=== PATIENT | female | born 1975 | race Caucasian/White ===

== ENCOUNTER 2022-08-10 06:24 | Day surgery (SDC) | payer OTHER ==
[2022-08-09 14:03] LABS: Absolute Lymphocytes (CBC) 1.5 K/uL (0.7-4.9); Hematocrit 41.4 % (36.0-45.0); Lymphocytes % 16.7 % (15.3-44.8); MCV 89.5 fL (80-100); RBC Red Blood Cell Count 4.63 M/uL (3.86-4.86)
--- NOTE | 2022-08-09 14:18 | RAD REPORT ---
EXAM DESCRIPTION: RAD - Chest Pa And Lat (2 Views) - 08/09/2022 1:52 pm CLINICAL HISTORY: PRE-OP, hypertension, breast implants COMPARISON: No comparisons FINDINGS: Lines: None. Lungs: No evidence of edema or pneumonia. Pleural: No significant pleural effusions or pneumothorax. Cardiac: The heart size is within normal limits. Mediastinum: Within normal limits. Bones: No acute fractures. Other: None IMPRESSION: No acute cardiopulmonary disease.
--- NOTE | 2022-08-09 16:04 | EKG ---
Test Date: 2022-08-09 Test Time: 13:26:34 Bond Writer: COLE MEASUREMENT RESULTS: Intervals: Rate: 92 SC: 134 QRSD: 84 QT: 374 QTc: 462 [place]: P: 53 SC: 134 QRS: 55 T: 23 INTERPRETIVE STATEMENTS: Normal sinus rhythm Normal ECG No previous ECG available for comparison Electronically Signed On 08-09-22 16:03:53 CDT by Rigo Balderrama
[2022-08-10] MEDS ORDERED: Ringers Lactate 1,000 ML IV ONE (06:49)
[2022-08-10] MEDS ORDERED: propofoL 200 MG/20 ML VIAL IV ONE (07:03)
[2022-08-10] MEDS: CEFAZOLIN SODIUM 1 GM/VIAL ONE ×3 (07:04→08:05)
[2022-08-10] MEDS ORDERED: MIDAZOLAM HCL 2 MG/2 ML INJ ONE (07:04)
[2022-08-10] MEDS ORDERED: FENTANYL CITR 100 MCG/2 ML ONE ×2 (07:05→08:40)
[2022-08-10] MEDS ORDERED: LIDOCAINE 2% MPF 5 ML VIAL ONE (07:06)
[2022-08-10] MEDS ORDERED: ONDANSETRON 4 MG/2 ML VIAL ONE (07:08)
[2022-08-10] MEDS ORDERED: dexAMETHasone 4 MG/ML VIAL ONE (08:34)
[2022-08-10] MEDS ORDERED: GLYCOPYRROLATE 0.2 MG/ML SYR ONE (08:45)
[2022-08-10] MEDS ORDERED: EPHEDRINE SULF 50 MG/ML VIAL ONE (08:45)
[2022-08-10] MEDS ORDERED: ATROPINE SULF 1 MG/10 ML SYR IV ONE (08:46)
[2022-08-10] MEDS ORDERED: Phenylephrine HCl 10 MG/ML 1 ML VIAL ONE (08:50)
--- NOTE | 2022-08-10 09:15 | P.BOP ---
Preoperative diagnosis: upper abdominal wall intramuscular mass Postoperative diagnosis: same Primary procedure: Excisional biopsy of large tender upper abdominal wall intramuscular mass Secondary procedure: [id number] Estimated blood loss: <10cc Specimen: rectus abdominis intramuscular mass Anesthesia: General Complications: None Transferred to: Recovery Room Condition: Good
[2022-08-10] MEDS: HYDROMORPHONE HCL 1 MG/ML INJ ONE ×2 (09:26→09:38)
[2022-08-10 10:13] VITALS: BP 124/76; TEMP 97.6; O2SAT 100
[2022-08-10] MEDS ORDERED: CODEINE 30MG/APAP 300MG TAB ONE (10:13)
--- NOTE | 2022-08-10 16:03 | DS ---
Date of Discharge: 08/10/2022 Diagnosis: Upper abdominal wall intramuscular mass. Procedure: Excisional biopsy of large tender upper abdominal wall intramuscular mass. Disposition: Home. Plan: Keep area and dressings intact until Monday visit. Medications were recalled from the office and follow up in my office this Monday and use abdominal binder. YAMILEX/MAYRA Voice ID: [id number] Report ID: [id number]
--- NOTE | 2022-08-10 16:12 | OP ---
Date of Procedure: 08/10/2022 Surgeon: Pietro Lorenzana MD Preoperative Diagnosis: Tender upper abdominal wall, rectus abdominis intramuscular and soft muscula r mass. Postoperative Diagnosis: Tender upper abdominal wall, rectus abdominis intramuscular and soft muscul ar mass. Procedure: Excisional biopsy of large tender upper abdominal wall intramuscular mass at about 12 x 7 x 2 cm. Estimated Blood Loss: Less than 10 mL. Specimen: Abdominal intramuscular mass not only goes into the rectus abdominis split right through i t and goes also underneath that rectus too. Does not go inside the peritoneum. Anesthesia: General plus local. Complications: None. Indication: This is the case of a 47-year-old patient, who comes to us with enlarging mass in the up per abdomen. Etiology of that is unknown. Imaging was done and showing the mass that not only goes through the muscle, but also underneath the muscle. It is giving her pain and discomfort, she wants that excised. The benefits, alternatives, and risks of excision fully explained, which include, but not limited to infection, bleeding, damage to adjacent structures, anesthesia complication, recurrenc e, GA, and even . She also understands this may not relieve any symptoms. She might need more than one surgical intervention. She understands also she may develop seroma in that region since the re is a large area present or even hematoma. She understands also be careful with heavy lifting in t he next few days since this muscle may get inflamed and bleed. She understood, signed the consent. The area of concern was marked by me and the patient in the holding room. Procedure In Detail: The patient was brought to the operating room, placed in supine position. Anes thesia was done without complication. Abdominal area was prepped and draped in the usual sterile fas hion. Local anesthesia was applied followed by sharp incision of the skin. We are going to subcutan eous tissue and then after that, we found the mass was partially protruding through the muscle and th en going inside the muscle. We identified the rectus abdominis , opened the fascia in that region, carefully dissected with blunt dissection. dissected around the muscle itself, i ntramuscular, some of that mass goes underneath the muscle itself. With the help of blunt dissection , we were able to dissect the area nicely to remove this in 1 unit. This is a large area, but when w e removed that, the muscle came back together. Hemostasis was obtained and irrigation before closure and local anesthetic. We approximated the muscle with the help of chromic. We approximated the fas jacob with #1 Vicryl multiple times and this was closed in layers once again from the inner layers to t he outer layers with a combination of Vicryl 0 chromic, then subcutaneous 3-0 chromic, and then skin with 4-0 PDS. The patient tolerated the procedure well. The patient was sent to recovery in stable condition. Hemostasis was obtained before closure. YAMILEX/MAYRA Voice ID: [id number] Report ID: [id number]
== END 2022-08-10 10:38 | disposition home or self-care (01) ==
LOC: OR 06:24
PROVIDERS: ATTEND Surgery
PROC: 0WBF0ZZ Excision of Abdominal Wall, Open Approach (ICD-10-PCS; principal; 2022-08-10 07:30)
DX: R19.00 Intra-abdominal and pelvic swelling, mass and lump, unspecified site (principal); R19.11 Absent bowel sounds; I10 Essential (primary) hypertension; E03.9 Hypothyroidism, unspecified; K21.9 Gastro-esophageal reflux disease without esophagitis; Z87.891 Personal history of nicotine dependence
CPT/HCPCS: 93005; 85025; 80048; 36415; 84703; 88304; 71046; 22901; J2704; J1100; J2370; J2001; J2250; J3010 ×2; J1170; J2405; J7120; J0690; J0461

== ENCOUNTER → 2023-04-28 | Emergency (ER) | payer OTHER ==
[~2023-04-28] MED LIST: NA CHLORIDE 0.9% 500 ML ONE; POTASSIUM CL SA 10 MEQ TAB PO ONE
[2023-04-28 02:24] LABS: Absolute Lymphocytes (CBC) 2.5 K/uL (0.7-4.9); Hematocrit 45.8 % (36.0-45.0); Lymphocytes % 48.5 % (15.3-44.8); MCV 88.4 fL (80-100); MPV 9.1 fL (7.6-11.3); Platelets 224 thou/uL (152-406); RBC Red Blood Cell Count 5.18 M/uL (3.86-4.86)
[2023-04-28 02:35] LABS: Albumin 3.9 g/dL (3.4-5.0); Bilirubin Direct 0.1 mg/dL (0-0.2); Bilirubin Indirect, Calculated 0.3 mg/dL (0.2-0.8); Bilirubin Total 0.4 mg/dL (0.2-1.0); Magnesium 2.3 mg/dL (1.6-2.4); Protein, Total 7.5 g/dL (6.4-8.2); Troponin High Sensitivity 3.3 pg/mL (<58.9)
[2023-04-28 02:43] LABS: Blood Morphology Comment NOT SEEN (NOT SEEN); Platelet Estimate ADEQ
--- NOTE | 2023-04-28 02:54 | ER ---
Nurse's Notes [facility] Name: Dasha Horvath Age: 48 yrs Sex: Female : 1975 Arrival Date: 04/28/2023 Time: 01:45 Bed 4 Private MD: Diagnosis: Cervical radiculopathy, dehydration, hypokalemia Presentation: 04/28 01:46 Chief complaint: Patient states: I have neck pain that radiates to the left arm. my ha1 left arm feels numb. 01:46 Coronavirus screen: Vaccine status: Patient reports receiving the 2nd dose of the covid ha1 vaccine. Pfiser. Ebola Screen: No symptoms or risks identified at this time. Initial Sepsis Screen: Does the patient meet any 2 criteria? No. Patient's initial sepsis screen is negative. Does the patient have a suspected source of infection? No. Patient's initial sepsis screen is negative. Risk Assessment: Do you want to hurt yourself or someone else? Patient reports no desire to harm self or others. Onset of symptoms was April 28, 2023. 01:46 Method Of Arrival: Ambulatory ha1 01:46 Acuity: BOLIVAR 3 ha1 Triage Assessment: 01:46 General: Appears uncomfortable, Behavior is cooperative, anxious. Pain: Complains of ha1 pain in neck Pain radiates to left arm Pain currently is 7 out of 10 on a pain scale. Quality of pain is described as throbbing. Neuro: Level of Consciousness is awake, alert, obeys commands, Oriented to person, place, time, situation. Cardiovascular: Capillary refill < 3 seconds Patient's skin is warm and dry. Cardiovascular: Heart tones S1 S2 present. Respiratory: Airway is patent Respiratory effort is even, unlabored, Respiratory pattern is regular, symmetrical. GI: GI: No signs and/or symptoms were reported involving the gastrointestinal system. Abdomen is round non-distended. : No signs and/or symptoms were reported regarding the genitourinary system. Derm: Skin is pink, warm \T\ dry. Musculoskeletal: Circulation, motion, and sensation intact. Range of motion: intact in all extremities. Historical: - Allergies: 01:56 Sulfa (Sulfonamide Antibiotics); ha1 - PMHx: :56 Hypertensive disorder; ha1 - Immunization history:: Adult Immunizations up to date. - Social history:: Smoking status: Patient/guardian denies using tobacco, but has a distant history of tobacco abuse. Screenin:00 [facility] ED Fall Risk Assessment (Adult) History of falling in the last 3 months, ha1 including since admission No falls in past 3 months (0 pts) Confusion or Disorientation No (0 pts) Intoxicated or Sedated No (0 pts) Impaired Gait No (0 pts) Mobility Assist Device Used No (0 pt) Altered Elimination No (0 pt) Score/Fall Risk Level 0 - 2 = Low Risk Oriented to surroundings, Maintained a safe environment, Hourly rounding (assess needs \T\ fall precautionary measures) done. Abuse screen: Denies threats or abuse. Denies injuries from another. Nutritional screening: No deficits noted. Tuberculosis screening: No symptoms or risk factors identified. Assessment: 01:46 Reassessment: see triage assessment. ha1 02:50 Reassessment: Patient and/or family updated on plan of care and expected duration. Pain ha1 level reassessed. Patient is alert, oriented x 3, equal unlabored respirations, skin warm/dry/pink. pain 2/10 Patient states feeling better. Patient states symptoms have improved. Vital Signs: 01:46 BP 165 / 91; Pulse 75; Resp 18 S; Temp 98.1; Pulse Ox 99% on R/A; Weight 91.17 kg; ha1 Height 5 ft. 4 in. ; 02:30 BP 147 / 86; Pulse 75; Resp 17 S; Pulse Ox 98% on R/A; ha1 03:39 BP 140 / 80; Pulse 72; Resp 17 S; Pulse Ox 98% on R/A; ha1 01:46 Body Mass Index 34.50 (91.17 kg, 162.56 cm) 1 ED Course: 01:46 Patient arrived in ED. [email or web address] 01:46 Martir Crawford MD is Attending Physician. sp3 01:46 Patient has correct armband on for positive identification. Placed in gown. Bed in low ha1 position. Call light in reach. Side rails up X 1. Adult w/ patient. 01:46 Arm band placed on right wrist. ha1 01:48 Inserted saline lock: 20 gauge in right antecubital area, using aseptic technique. ha1 Blood collected. 01:53 Basic Metabolic Panel Sent. ha1 01:53 CBC with Diff Sent. ha1 01:53 LFT's Sent. ha1 01:53 Magnesium Sent. ha1 01:53 NT PRO-BNP Sent. ha1 01:53 Troponin HS Sent. ha1 01:56 Triage completed. ha1 02:23 XRAY Chest (1 view) In Process Unspecified. EDMS 02:40 C Spine Ap/Lat XRAY In Process Unspecified. EDMS 03:36 Audra Saravia, RN is Primary Nurse. ha1 03:37 No provider procedures requiring assistance completed. IV discontinued, intact, ha1 bleeding controlled, No redness/swelling at site. Pressure dressing applied. 03:38 Provided Education on: following up with PCP. ha1 Administered Medications: 02:55 Drug: Potassium Chloride PO 20 mEq PO once Route: PO; ha1 03:37 Follow up: Response: No adverse reaction ha1 02:55 Drug: NS 0.9% IV 500 ml IV at bolus once Route: IV; Rate: bolus; Site: right ha1 antecubital; 03:36 Follow up: Response: No adverse reaction; IV Status: Completed infusion; IV Intake: ha1 500ml Medication: 03:38 VIS not applicable for this client. ha1 Intake: 03:36 IV: 500ml; Total: 500ml. ha1 Outcome: 02:54 Discharge ordered by . sp3 03:37 Discharged to home ambulatory, ha1 03:37 Condition: stable 03:37 Discharge instructions given to patient, family, Instructed on discharge instructions, follow up and referral plans. Demonstrated understanding of instructions, follow-up care, 03:40 Patient left the ED. ha1 Signatures: Dispatcher [employer] Martir Thompson MD MD sp3 Audra Forman jj6 Audra Saravia, RN RN ha1
--- NOTE | 2023-04-28 02:54 | EDPHYS ---
Physician Documentation [facility] Name: Dasha Horvath Age: 48 yrs Sex: Female : 1975 Arrival Date: 04/28/2023 Time: 01:45 Bed 4 Private MD: ED Physician Martir Crawford HPI: 04/28 01:53 This 48 yrs old Female presents to ER via Unassigned with complaints of Numbness Of sp3 Arm, Arm Pain. 01:53 48-year-old female with a history of hypertension now presents to the ED with chief sp3 complaint left-sided neck pain with numbness and pain extending into her left upper extremity that is worse when she moves it. She denies any chest pain per se, shortness of breath, back pain, abdominal pain, epigastric pain, syncope, near syncope, or any other anginal equivalents. Review of systems otherwise negative for URI symptoms, fever, known sick contacts, travel history, abdominal pain, nausea, vomiting, diarrhea, other focal neurological deficit, symptoms, NURSING HOME ADMISSIONS DIRECTOR symptoms, or any other signs or symptoms on ROS at this time.. Historical: - Allergies: 01:56 Sulfa (Sulfonamide Antibiotics); ha1 - PMHx: 01:56 Hypertensive disorder; ha1 - Immunization history:: Adult Immunizations up to date. - Social history:: Smoking status: Patient/guardian denies using tobacco, but has a distant history of tobacco abuse. ROS: 01:56 Constitutional: Negative for fever, chills, and weight loss, Eyes: Negative for injury, sp3 pain, redness, and discharge, ENT: Negative for injury, pain, and discharge, Neck: Negative for injury, pain, and swelling, Cardiovascular: Negative for chest pain, palpitations, and edema, Respiratory: Negative for shortness of breath, cough, wheezing, and pleuritic chest pain, Abdomen/GI: Negative for abdominal pain, nausea, vomiting, diarrhea, and constipation, Back: Negative for injury and pain, Skin: Negative for injury, rash, and discoloration, Neuro: Negative for headache, weakness, numbness, tingling, and seizure, Psych: Negative for depression, anxiety, suicide ideation, homicidal ideation, and hallucinations, Allergy/Immunology: Negative for hives, rash, and allergies, Endocrine: Negative for neck swelling, polydipsia, polyuria, polyphagia, and marked weight changes, Hematologic/Lymphatic: Negative for swollen nodes, abnormal bleeding, and unusual bruising, 01:56 All other systems are negative, Exam: 01:57 Constitutional: This is a well developed, well nourished patient who is awake, alert, sp3 and in no acute distress. Head/Face: Normocephalic, atraumatic. Eyes: Pupils equal round and reactive to light, extra-ocular motions intact. Lids and lashes normal. Conjunctiva and sclera are non-icteric and not injected. Cornea within normal limits. Periorbital areas with no swelling, redness, or edema. ENT: Nares patent. No nasal discharge, no septal abnormalities noted. External auditory canals are clear. Oropharynx with no redness, swelling, or masses, exudates, or evidence of obstruction, uvula midline. Mucous membranes moist. Neck: Trachea midline, no thyromegaly or masses palpated, and no cervical lymphadenopathy. Supple, full range of motion without nuchal rigidity, or vertebral point tenderness. No Meningismus. Chest/axilla: Normal chest wall appearance and motion. Nontender with no deformity. No lesions are appreciated. Cardiovascular: Regular rate and rhythm with a normal S1 and S2. No gallops, murmurs, or rubs. Normal PMI, no JVD. No pulse deficits. Respiratory: Lungs have equal breath sounds bilaterally, clear to auscultation and percussion. No rales, rhonchi or wheezes noted. No increased work of breathing, no retractions or nasal flaring. Abdomen/GI: Soft, non-tender, with normal bowel sounds. No distension or tympany. No guarding or rebound. No evidence of tenderness throughout. Back: No spinal tenderness. No costovertebral tenderness. Full range of motion. Skin: Warm, dry with normal turgor. Normal color with no rashes, no lesions, and no evidence of cellulitis. Neuro: Awake and alert, GCS 15, oriented to person, place, time, and situation. Cranial nerves II-XII grossly intact. Motor strength 5/5 in all extremities. Sensory grossly intact. Cerebellar exam normal. Normal gait. Psych: Awake, alert, with orientation to person, place and time. Behavior, mood, and affect are within normal limits. 01:57 Musculoskeletal/extremity: Inducible pain on left upper extremity with movement. Distal neurovascular exam is normal. Cardiac exam is normal.. 02:12 ECG was reviewed by the Attending Physician. EKG demonstrates normal sinus rhythm at 80 sp3 bpm with normal intervals, normal QRS, normal ST/T-segment's without evidence of acute ischemia. Vital Signs: 01:46 BP 165 / 91; Pulse 75; Resp 18 S; Temp 98.1; Pulse Ox 99% on R/A; Weight 91.17 kg; ha1 Height 5 ft. 4 in. ; 02:30 BP 147 / 86; Pulse 75; Resp 17 S; Pulse Ox 98% on R/A; ha1 03:39 BP 140 / 80; Pulse 72; Resp 17 S; Pulse Ox 98% on R/A; ha1 01:46 Body Mass Index 34.50 (91.17 kg, 162.56 cm) ha1 MDM: 01:47 Patient medically screened. sp3 01:58 Data reviewed: vital signs, nurses notes, lab test result(s), EKG, radiologic studies. sp3 ED course: 48-year-old female with hypertension and probable left upper extremity radiculopathy. I am not highly suspicious for acute coronary syndrome, PE, TAD or other aortic pathology, GI pathology, mediastinitis, sepsis, shock, pneumonia, pneumothorax, or any other critical process at this time. Will obtain EKG, chest x-ray, laboratory values as well as C-spine x-ray looking at joint space. If workup is negative, will recommend outpatient MRI and follow-up with PCP. . 02:52 ED course: Patient's laboratory values are within normal limits except for potassium. sp3 CBC and BUN and creatinine also demonstrate hemoconcentration. We will administer normal saline and also p.o. potassium. I do not believe this is cardiac in nature. Will recommend outpatient MRI given C5-C6 degenerative changes noted. Patient continues to have no chest pain, shortness of breath, jaw pain or other anginal equivalents. Patient is stable with normal vital signs and we will safely discharged home at this time after above interventions.. 04/28 01:47 Order name: Basic Metabolic Panel; Complete Time: 02:46 sp3 04/28 01:47 Order name: CBC with Diff; Complete Time: 02:46 sp3 04/28 01:47 Order name: LFT's; Complete Time: 02:46 sp3 04/28 01:47 Order name: Magnesium; Complete Time: 02:46 sp3 04/28 01:47 Order name: NT PRO-BNP; Complete Time: 02:46 sp3 04/28 01:47 Order name: Troponin HS; Complete Time: 02:46 sp3 04/28 02:27 Order name: Manual Differential; Complete Time: 02:46 EDMS 04/28 01:47 Order name: XRAY Chest (1 view) sp3 04/28 01:47 Order name: C Spine Ap/Lat XRAY sp3 04/28 01:47 Order name: EKG; Complete Time: 01:47 sp3 04/28 01:47 Order name: Cardiac monitoring; Complete Time: 01:52 sp3 04/28 01:47 Order name: EKG - Nurse/Tech; Complete Time: 01:52 sp3 04/28 01:47 Order name: IV Saline Lock; Complete Time: 01:52 sp3 04/28 01:47 Order name: Labs collected and sent; Complete Time: :52 sp3 04/28 01:47 Order name: O2 Per Protocol; Complete Time: :52 sp3 04/28 01:47 Order name: O2 Sat Monitoring; Complete Time: 01:52 sp3 Administered Medications: 02:55 Drug: Potassium Chloride PO 20 mEq PO once Route: PO; ha1 03:37 Follow up: Response: No adverse reaction ha1 02:55 Drug: NS 0.9% IV 500 ml IV at bolus once Route: IV; Rate: bolus; Site: right ha1 antecubital; 03:36 Follow up: Response: No adverse reaction; IV Status: Completed infusion; IV Intake: ha1 500ml Disposition Summary: 04/28/23 02:54 Discharge Ordered Notes: Location: Home sp3 Condition: Stable sp3 Diagnosis - Cervical radiculopathy, dehydration, hypokalemia sp3 Followup: sp3 - With: Private Physician - When: Upon discharge from the Emergency Department - Reason: Recheck today's complaints, Continuance of care Discharge Instructions: - Discharge Summary Sheet sp3 - Cervical Radiculopathy sp3 - Hypokalemia sp3 Forms: - Medication Reconciliation Form sp3 - Thank You Letter sp3 - Antibiotic Education sp3 - Prescription Opioid Use sp3 - Patient Portal Instructions sp3 - Leadership Thank You Letter sp3 Signatures: Dispatcher [employer] EDMS Crawford, Setul, MD MD sp3 Audra Saravia, BRADY RN ha1
[2023-04-28 10:35] VITALS: BP 140/80; TEMP 98.1; O2SAT 98
--- NOTE | 2023-04-28 11:15 | RAD REPORT ---
EXAM DESCRIPTION: RAD - Chest Single View - 04/28/2023 2:21 am CLINICAL HISTORY: CHEST PAIN TECHNIQUE: AP chest COMPARISON: None available for comparison FINDINGS: CHEST: Heart: The cardiomediastinal silhouette is within normal limits. Lungs: No focal consolidation. Mediastinum: Unremarkable Pleura: No appreciable effusion. No pneumothorax. Bones: Intact IMPRESSION: No acute cardiopulmonary disease. Electronically signed by: Len Hendricks MD 04/28/2023 03:15 AM [employer] SERVICE TECHNICIAN Due to temporary technical issues with the PACS/Fluency reporting system, reports are being signed by the in house radiologist without review as a courtesy to ensure prompt reporting. The interpreting r adiologist is fully responsible for the content of the report.
--- NOTE | 2023-04-28 11:16 | RAD REPORT ---
EXAM DESCRIPTION: RAD - C Spine Ap/Lat - 04/28/2023 2:39 am CLINICAL HISTORY: 48 years, Female, RADICULOPATHY COMPARISON: None FINDINGS: 3 X-ray views of the cervical spine (frontal, lateral and odontoid views) were performed. There is normal anatomic alignment of the cervical vertebral bodies. There is minimal degenerative disc disease with anterior spondylosis at C5/C6. The uncovertebral joints demonstrate to be grossly u nremarkable with no evidence for significant step-off. There is no prevertebral soft tissue swellin g. There is no evidence for fracture or subluxation. The dens is intact. IMPRESSION: Minimal degenerative disc disease with anterior spondylosis at C5/C6. Electronically signed by: Prasanth Hill MD 04/28/2023 03:42 AM ADMINISTRATIVE JUDGE Due to temporary technical issues with the PACS/Fluency reporting system, reports are being signed by the in house radiologist without review as a courtesy to ensure prompt reporting. The interpreting r adiologist is fully responsible for the content of the report.
--- NOTE | 2023-05-01 17:04 | EKG ---
Test Date: 2023-04-28 Test Time: 01:45:25 Motor And Generator Brush Maker: GUICHO MEASUREMENT RESULTS: Intervals: Rate: 79 ME: 148 QRSD: 92 QT: 398 QTc: 456 [place]: P: 58 ME: 148 QRS: 44 T: 54 INTERPRETIVE STATEMENTS: Normal sinus rhythm Normal ECG Compared to ECG 08/09/2022 13:26:34 No significant changes Electronically Signed On 05-01-23 16:54:54 WELDER by Omar Valenzuela
== END ==
LOC: ER 01:45
DX: M54.12 Radiculopathy, cervical region (principal); E86.0 Dehydration; E87.6 Hypokalemia; I10 Essential (primary) hypertension; Z88.2 Allergy status to sulfonamides
CPT/HCPCS: 93005; 85025; 80048; 36415; 83735; 80076; 84484; 83880; 71045; 72040; 96360; 99284; J7040